=== PATIENT | male | born 1955 | race Caucasian/White ===

== ENCOUNTER 2024-01-21 09:19 | Inpatient (IN) | payer BC ==
[~2024-01-21] VITALS: Ht 167.6 cm; Wt 57.2 kg
[2024-01-21] MEDS: IV NS 0.9% 1,000 ML BAG IV ONE (09:35)
[2024-01-21 10:25] LABS: BASOPHILS % (AUTO) 0.3 % (0.0-2.0); HEMATOCRIT 24 % (39-51); LYMPHOCYTES # (AUTO) 0.9 K/uL (0.8-4.8); LYMPHOCYTES % (AUTO) 13.5 % (20.0-44.0); MEAN CORPUSCULAR HEMOGLOBIN 31 PG (26.0-33.0); MEAN CORPUSCULAR HGB CONC 34 g/dl (31.0-36.0); MEAN CORPUSCULAR VOLUME 94 fL (80-96); MONOCYTES # (AUTO) 0.4 K/uL (0.1-1.30); MONOCYTES % (AUTO) 5.8 % (2.0-12.0); NEUTROPHILS # (AUTO) 5.4 K/uL (1.8-8.9); NEUTROPHILS % (AUTO) 80.4 % (43.0-81.0); PLATELET COUNT (AUTO) 479 K/uL (150-450); RED BLOOD CELL COUNT(AUTO) 2.56 MIL/uL (4.5-6.0); RED CELL DISTRIBUTION WIDTH 15.4 % (11.5-15.0); WHITE BLOOD COUNT (AUTO) 6.7 K/uL (4.3-11.0)
[2024-01-21 10:34] LABS: CALCIUM, SERUM 6.7 mg/dL (8.5-10.1); POTASSIUM 3.2 mmol/L (3.5-5.1)
[2024-01-21] MEDS ORDERED: VALS320T16 PO (11:13)
[2024-01-21] MEDS ORDERED: OMEP40CA21 PO (11:13)
[2024-01-21] MEDS ORDERED: DIPH1TAB PO (11:13)
[2024-01-21] MEDS ORDERED: RIVA10TA PO (11:13)
[2024-01-21] MEDS ORDERED: AMLO-212 PO (11:13)
[2024-01-21] MEDS: IV NS 0.9% 1,000 ML IV SCH (15:22)
[2024-01-21] MEDS: RIVAROXABAN 10 MG TABLET PO SCH (17:38)
[2024-01-21] MEDS: ONDANSETRON HCL/PF 4 MG/2 ML VIAL IVP PRN (19:42)
[2024-01-21 20:00] VITALS: BP 103/70; TEMP 98; TEMP 98.6; O2SAT 96; O2SAT 98
[2024-01-21] MEDS ORDERED: HEPARIN SODIUM, PORCINE 5000 UNITS/1 ML VIAL SQ SCH (21:00)
[2024-01-21] MEDS: VALSARTAN 80 MG TABLET PO SCH (22:00)
[2024-01-22] VITALS: BP 105/69; TEMP 98.6; O2SAT 98
[2024-01-22 04:00] VITALS: BP 110/58; TEMP 98; O2SAT 99
[2024-01-22 08:00] VITALS: BP 108/78; TEMP 98; O2SAT 100
[2024-01-22 08:50] LABS: POTASSIUM 3.1 mmol/L (3.5-5.1)
[2024-01-22 08:51] LABS: BILIRUBIN,TOTAL 0.6 mg/dL (0.2-1.0); CALCIUM, SERUM 6.6 mg/dL (8.5-10.1); CREATININE 0.7 mg/dL (0.6-1.3)
[2024-01-22 08:52] LABS: TOTAL PROTEIN, SERUM 4.8 g/dL (6.4-8.2)
[2024-01-22 09:00] LABS: ALBUMIN 0.9 g/dL (3.4-5.0)
[2024-01-22 10:10] LABS: BASOPHILS % (AUTO) 0.4 % (0.0-2.0); EOSINOPHILS % (AUTO) 0.1 % (0.0-6.0); HEMATOCRIT 23 % (39-51); HEMOGLOBIN 7.9 g/dL (13.5-17.5); LYMPHOCYTES # (AUTO) 0.8 K/uL (0.8-4.8); LYMPHOCYTES % (AUTO) 16.1 % (20.0-44.0); MEAN CORPUSCULAR HEMOGLOBIN 32 PG (26.0-33.0); MEAN CORPUSCULAR HGB CONC 34 g/dl (31.0-36.0); MEAN CORPUSCULAR VOLUME 94 fL (80-96); MONOCYTES # (AUTO) 0.3 K/uL (0.1-1.30); MONOCYTES % (AUTO) 6.6 % (2.0-12.0); NEUTROPHILS # (AUTO) 3.9 K/uL (1.8-8.9); NEUTROPHILS % (AUTO) 76.8 % (43.0-81.0); PLATELET COUNT (AUTO) 461 K/uL (150-450); RED BLOOD CELL COUNT(AUTO) 2.45 MIL/uL (4.5-6.0); RED CELL DISTRIBUTION WIDTH 15.2 % (11.5-15.0)
[2024-01-22] MEDS: POTASSIUM CHLORIDE 20 MEQ TAB.PRT.SR PO SCH (11:37)
[2024-01-22 12:00] VITALS: BP 116/77; TEMP 98.4; O2SAT 100
[2024-01-22] MEDS: ENSURE ENLIVE CHOC 237 ML CAN PO SCH (12:01)
[2024-01-22 16:00] VITALS: BP 105/69; TEMP 98.3; O2SAT 100
[2024-01-22] MEDS: K PHOS NEUTRAL 250 MG TABLET PO ONE (16:22)
[2024-01-22 20:00] VITALS: BP 112/71; TEMP 98.4; O2SAT 100
[2024-01-23] VITALS: BP 107/67; TEMP 98.1; O2SAT 100
[2024-01-23 04:00] VITALS: BP 112/74; TEMP 97.5; O2SAT 97
[2024-01-23 07:02] LABS: CALCIUM, SERUM 6.4 mg/dL (8.5-10.1); CREATININE 0.7 mg/dL (0.6-1.3); MAGNESIUM 1.6 mg/dL (1.8-2.4); PHOSPHORUS 1.5 mg/dL (2.5-4.9); POTASSIUM 3.8 mmol/L (3.5-5.1)
[2024-01-23 07:19] LABS: THYROID STIMULATING HORMONE 1.303 uIU/mL (0.358-3.74); URIC ACID 2.8 mg/dL (2.6-7.2)
[2024-01-23 08:00] VITALS: BP 152/95; TEMP 99.1; O2SAT 98
[2024-01-23] MEDS: ACETAMINOPHEN 325 MG TABLET PO PRN (08:14)
[2024-01-23 12:00] VITALS: BP 107/60; TEMP 98.6; O2SAT 97
[2024-01-23] MEDS: ALBUMIN 25% 25 GM in PREMIX 1 EA IV SCH (14:13)
[2024-01-23 16:00] VITALS: BP 114/74; TEMP 98.2; O2SAT 99
[2024-01-23] MEDS: K PHOS NEUTRAL 250 MG TABLET PO ONE (16:00)
[2024-01-23 20:00] VITALS: BP 103/66; TEMP 98.4; O2SAT 98
[2024-01-24] VITALS (14 sets, daily range): BP systolic 93–123; BP diastolic 49–69; TEMP 98.4–100; O2SAT 95
[2024-01-24] MEDS: ENOXAPARIN SODIUM 60 MG/0.6 ML DISP.SYRIN SQ SCH (11:08)
[2024-01-24 11:28] LABS: BASOPHILS % (AUTO) 0.3 % (0.0-2.0); EOSINOPHILS % (AUTO) 0.3 % (0.0-6.0); LYMPHOCYTES # (AUTO) 1.4 K/uL (0.8-4.8); LYMPHOCYTES % (AUTO) 22.2 % (20.0-44.0); MEAN CORPUSCULAR HEMOGLOBIN 32 PG (26.0-33.0); MEAN CORPUSCULAR HGB CONC 35 g/dl (31.0-36.0); MEAN CORPUSCULAR VOLUME 93 fL (80-96); MONOCYTES # (AUTO) 0.6 K/uL (0.1-1.30); MONOCYTES % (AUTO) 9.2 % (2.0-12.0); NEUTROPHILS # (AUTO) 4.3 K/uL (1.8-8.9); PLATELET COUNT (AUTO) 353 K/uL (150-450); RED CELL DISTRIBUTION WIDTH 15.8 % (11.5-15.0); WHITE BLOOD COUNT (AUTO) 6.3 K/uL (4.3-11.0)
[2024-01-24 11:33] LABS: RED BLOOD CELL COUNT(AUTO) 1.58 MIL/uL (4.5-6.0)
[2024-01-24 11:35] LABS: HEMATOCRIT 15 % (39-51); HEMOGLOBIN 5.1 g/dL (13.5-17.5)
[2024-01-24 11:38] LABS: CALCIUM, SERUM 6.4 mg/dL (8.5-10.1); CREATININE 0.7 mg/dL (0.6-1.3); POTASSIUM 3.1 mmol/L (3.5-5.1)
[2024-01-24 11:45] LABS: BILIRUBIN,TOTAL 0.5 mg/dL (0.2-1.0); TOTAL PROTEIN, SERUM 4.1 g/dL (6.4-8.2)
[2024-01-24 11:52] LABS: ALBUMIN 1.1 g/dL (3.4-5.0)
[2024-01-24] MEDS ORDERED: FUROSEMIDE 20 MG/2 ML VIAL IV PRN (12:00)
[2024-01-24 12:35] LABS: BAND % (MANUAL) 2 % (0.0-5.0); BASOPHILS % (MANUAL) 0 % (0.0-2.0); EOSINOPHILS % (MANUAL) 0 % (0-4); LYMPHOCYTES % (MANUAL) 19 % (16-48); MONOCYTES % (MANUAL) 6 % (0-11.0); NEUTROPHILS % (MANUAL) 73 (42-76)
[2024-01-24 12:36] LABS: ANISOCYTOSIS 1+; HYPOCHROMASIA 1+; OVALOCYTES 1+; PLATELET ESTIMATE ADEQUATE; TARGET CELLS 1+
[2024-01-24] MEDS: PANTOPRAZOLE 40 MG VIAL IV SCH (14:23)
[2024-01-24] MEDS: ALBUMIN 25% 25 GM in PREMIX 1 EA IV ONE (14:26)
[2024-01-24] MEDS: FUROSEMIDE 20 MG/2 ML VIAL IV ONE (20:00)
[2024-01-25] MEDS: FUROSEMIDE 20 MG/2 ML VIAL IV ONE (00:30)
[2024-01-25 03:16] LABS: HEMOGLOBIN 8.1 g/dL (13.5-17.5)
[2024-01-25 03:23] LABS: APPEARANCE,URINE CLEAR (CLEAR); BILIRUBIN,URINE NEGATIVE (NEGATIVE); BLOOD, URINE TRACE-INTA Ery/uL (NEGATIVE); COLOR,URINE YELLOW (YELLOW); KETONES,URINE NEGATIVE (NEGATIVE); LEUKOCYTE ESTERASE ,URINE 1+ (NEGATIVE); NITRITE, URINE NEGATIVE (NEGATIVE); PROTEIN,URINE NEGATIVE (NEGATIVE); UGLUCOSE NEGATIVE (NEGATIVE); UROBILINOGEN,URINE 0.2 EU/dL (0.2)
[2024-01-25 03:27] LABS: ADD URINE CULTURE YES; BACTERIA,URINE Rare /HPF (None Seen); RBC,URINE 0-2 /HPF (0-2)
[2024-01-25 03:28] LABS: SQUAMOUS EPITHELIAL CELL,UR Few /HPF (None Seen)
[2024-01-25 03:33] LABS: BILIRUBIN,TOTAL 1.3 mg/dL (0.2-1.0); CALCIUM, SERUM 6.8 mg/dL (8.5-10.1); CREATININE 0.8 mg/dL (0.6-1.3); POTASSIUM 3.2 mmol/L (3.5-5.1); TOTAL PROTEIN, SERUM 4.5 g/dL (6.4-8.2)
[2024-01-25 04:00] VITALS: BP 120/58; TEMP 99.3; O2SAT 95
[2024-01-25 04:36] LABS: ALBUMIN 0.1 g/dL (3.4-5.0)
[2024-01-25 08:00] VITALS: BP 113/69; TEMP 99.5; O2SAT 95
[2024-01-25] MEDS ORDERED: POTASSIUM CHLORIDE 20 MEQ TAB.PRT.SR PO SCH (08:00)
[2024-01-25] MEDS: ALBUMIN 25% 25 GM in PREMIX 1 EA IV SCH (08:09)
[2024-01-25 09:48] LABS: BASOPHILS % (AUTO) 0.2 % (0.0-2.0); EOSINOPHILS % (AUTO) 0.2 % (0.0-6.0); HEMATOCRIT 24 % (39-51); HEMOGLOBIN 8.2 g/dL (13.5-17.5); LYMPHOCYTES # (AUTO) 1.4 K/uL (0.8-4.8); LYMPHOCYTES % (AUTO) 19.6 % (20.0-44.0); MEAN CORPUSCULAR HEMOGLOBIN 32 PG (26.0-33.0); MEAN CORPUSCULAR HGB CONC 35 g/dl (31.0-36.0); MEAN CORPUSCULAR VOLUME 91 fL (80-96); MONOCYTES % (AUTO) 13.8 % (2.0-12.0); NEUTROPHILS # (AUTO) 4.9 K/uL (1.8-8.9); NEUTROPHILS % (AUTO) 66.2 % (43.0-81.0); PLATELET COUNT (AUTO) 345 K/uL (150-450); RED BLOOD CELL COUNT(AUTO) 2.59 MIL/uL (4.5-6.0); RED CELL DISTRIBUTION WIDTH 15.3 % (11.5-15.0); WHITE BLOOD COUNT (AUTO) 7.4 K/uL (4.3-11.0)
[2024-01-25 10:16] LABS: INR 1.2 (0.91-1.10); PROTHROMBIN TIME 12.6 SECS (9.2-11.1)
[2024-01-25] MEDS: CEFEPIME 2 GM in IV D5W 100 ML IV SCH (11:29)
[2024-01-25 16:00] VITALS: BP 113/71; TEMP 98.8; O2SAT 96
[2024-01-25 20:00] VITALS: BP 103/58; TEMP 98.5; O2SAT 95
[2024-01-26] VITALS (8 sets, daily range): BP systolic 122–149; BP diastolic 69–114; TEMP 96–99.4; O2SAT 96–97
[2024-01-26 06:40] LABS: ALBUMIN 2.2 g/dL (3.4-5.0); CALCIUM, SERUM 7.1 mg/dL (8.5-10.1); CREATININE 0.8 mg/dL (0.6-1.3); POTASSIUM 2.9 mmol/L (3.5-5.1); TOTAL PROTEIN, SERUM 4.6 g/dL (6.4-8.2)
[2024-01-26 06:42] LABS: BASOPHILS % (AUTO) 0.2 % (0.0-2.0); EOSINOPHILS % (AUTO) 0.1 % (0.0-6.0); LYMPHOCYTES # (AUTO) 1.5 K/uL (0.8-4.8); LYMPHOCYTES % (AUTO) 22.3 % (20.0-44.0); MEAN CORPUSCULAR HEMOGLOBIN 33 PG (26.0-33.0); MEAN CORPUSCULAR HGB CONC 35 g/dl (31.0-36.0); MEAN CORPUSCULAR VOLUME 92 fL (80-96); MONOCYTES # (AUTO) 0.8 K/uL (0.1-1.30); MONOCYTES % (AUTO) 11.8 % (2.0-12.0); NEUTROPHILS # (AUTO) 4.5 K/uL (1.8-8.9); NEUTROPHILS % (AUTO) 65.6 % (43.0-81.0); PLATELET COUNT (AUTO) 282 K/uL (150-450); RED BLOOD CELL COUNT(AUTO) 2.02 MIL/uL (4.5-6.0); RED CELL DISTRIBUTION WIDTH 15.2 % (11.5-15.0); WHITE BLOOD COUNT (AUTO) 6.9 K/uL (4.3-11.0)
[2024-01-26 06:45] LABS: HEMATOCRIT 19 % (39-51); HEMOGLOBIN 6.6 g/dL (13.5-17.5)
[2024-01-26] MEDS: POTASSIUM CHLORIDE 20 MEQ TAB.PRT.SR PO SCH (09:00)
[2024-01-26] MEDS: POTASSIUM CL. PREMIX PERIPHER. 50 ML IV SCH ×2 (10:00→15:22)
[2024-01-26 11:52] LABS: BASOPHILS % (MANUAL) 0 % (0.0-2.0); EOSINOPHILS % (MANUAL) 0 % (0-4); LYMPHOCYTES % (MANUAL) 19 % (16-48); MONOCYTES % (MANUAL) 9 % (0-11.0); NEUTROPHILS % (MANUAL) 72 (42-76)
[2024-01-26 11:53] LABS: ANISOCYTOSIS 1+; OVALOCYTES 1+; PLATELET ESTIMATE ADEQUATE
[2024-01-26 14:55] LABS: HEMOGLOBIN 8.3 g/dL (13.5-17.5)
[2024-01-26 18:22] LABS: CALCIUM, SERUM 7.1 mg/dL (8.5-10.1); CREATININE 0.8 mg/dL (0.6-1.3); POTASSIUM 3.3 mmol/L (3.5-5.1)
[2024-01-26] MEDS ORDERED: POTASSIUM CL. PREMIX PERIPHER. 50 ML IV SCH (22:00)
[2024-01-27] MEDS: CEFEPIME 2 GM in IV D5W 100 ML IV SCH (00:38)
[2024-01-27 04:00] VITALS: BP 138/80; TEMP 98; O2SAT 98
[2024-01-27 06:58] LABS: BASOPHILS % (AUTO) 0.3 % (0.0-2.0); EOSINOPHILS % (AUTO) 0.4 % (0.0-6.0); HEMATOCRIT 25 % (39-51); HEMOGLOBIN 8.9 g/dL (13.5-17.5); LYMPHOCYTES # (AUTO) 1.7 K/uL (0.8-4.8); LYMPHOCYTES % (AUTO) 27.3 % (20.0-44.0); MEAN CORPUSCULAR HEMOGLOBIN 32 PG (26.0-33.0); MEAN CORPUSCULAR HGB CONC 35 g/dl (31.0-36.0); MEAN CORPUSCULAR VOLUME 92 fL (80-96); MONOCYTES # (AUTO) 0.8 K/uL (0.1-1.30); MONOCYTES % (AUTO) 12.5 % (2.0-12.0); NEUTROPHILS # (AUTO) 3.6 K/uL (1.8-8.9); NEUTROPHILS % (AUTO) 59.5 % (43.0-81.0); PLATELET COUNT (AUTO) 299 K/uL (150-450); RED BLOOD CELL COUNT(AUTO) 2.74 MIL/uL (4.5-6.0); RED CELL DISTRIBUTION WIDTH 15.5 % (11.5-15.0)
[2024-01-27 07:13] LABS: ALANINE AMINOTRANSFERASE < 6 U/L (12-78); ALKALINE PHOSPHATASE 62 U/L (46-116); ASPARTATE AMINOTRANSFERASE 5 U/L (15-37); CARBON DIOXIDE 21 mmol/L (21-32); CHLORIDE 103 mmol/L (98-107); CREATININE 0.7 mg/dL (0.6-1.3); GLUCOSE 75 mg/dL (74-106); POTASSIUM 3.8 mmol/L (3.5-5.1); SODIUM SERUM 132 mmol/L (136-145); TOTAL PROTEIN, SERUM 4.6 g/dL (6.4-8.2); UREA NITROGEN, BLOOD 7 mg/dL (7-18)
[2024-01-27 08:00] VITALS: BP 135/81; TEMP 98.6; O2SAT 96
[2024-01-27] MEDS ORDERED: POTASSIUM CL. PREMIX PERIPHER. 50 ML IV SCH ×2 (10:00→22:00)
[2024-01-27 16:00] VITALS: BP 133/80; TEMP 98.4; O2SAT 96
[2024-01-27] MEDS: PANTOPRAZOLE 40 MG TABLET.DR PO SCH (16:32)
[2024-01-27 20:00] VITALS: BP 132/77; TEMP 98.5; O2SAT 96
[2024-01-28 04:00] VITALS: BP 129/79; TEMP 98; O2SAT 95
[2024-01-28 06:48] LABS: BASOPHILS % (AUTO) 0.5 % (0.0-2.0); EOSINOPHILS % (AUTO) 0.5 % (0.0-6.0); HEMATOCRIT 25 % (39-51); HEMOGLOBIN 8.6 g/dL (13.5-17.5); LYMPHOCYTES # (AUTO) 1.7 K/uL (0.8-4.8); LYMPHOCYTES % (AUTO) 26.4 % (20.0-44.0); MEAN CORPUSCULAR HEMOGLOBIN 32 PG (26.0-33.0); MEAN CORPUSCULAR HGB CONC 34 g/dl (31.0-36.0); MEAN CORPUSCULAR VOLUME 93 fL (80-96); MONOCYTES # (AUTO) 0.7 K/uL (0.1-1.30); MONOCYTES % (AUTO) 11.5 % (2.0-12.0); NEUTROPHILS # (AUTO) 3.9 K/uL (1.8-8.9); NEUTROPHILS % (AUTO) 61.1 % (43.0-81.0); PLATELET COUNT (AUTO) 297 K/uL (150-450); RED BLOOD CELL COUNT(AUTO) 2.69 MIL/uL (4.5-6.0); RED CELL DISTRIBUTION WIDTH 15.4 % (11.5-15.0); WHITE BLOOD COUNT (AUTO) 6.3 K/uL (4.3-11.0)
[2024-01-28 07:02] LABS: CALCIUM, SERUM 7.1 mg/dL (8.5-10.1); CREATININE 0.7 mg/dL (0.6-1.3); MAGNESIUM 1.5 mg/dL (1.8-2.4); PHOSPHORUS 1.1 mg/dL (2.5-4.9); POTASSIUM 3.3 mmol/L (3.5-5.1)
[2024-01-28 08:00] VITALS: BP 124/80; TEMP 98.2; O2SAT 96
[2024-01-28] MEDS: MAGNESIUM OXIDE 400 MG TABLET PO ONE (10:04)
[2024-01-28] MEDS: POTASSIUM CHLORIDE 20 MEQ TAB.PRT.SR PO ONE (12:14)
[2024-01-28] MEDS: MORPHINE SULFATE INJ 2 MG/ML DISP.SYRIN IV PRN (12:49)
[2024-01-28] MEDS: POTASSIUM CL. PREMIX PERIPHER. 50 ML IV SCH (13:34)
[2024-01-28 16:00] VITALS: BP 132/77; TEMP 98.1; O2SAT 98
[2024-01-28 20:00] VITALS: BP 103/86; TEMP 98.7; O2SAT 98
[2024-01-28] MEDS ORDERED: KETOROLAC TROMETHAMINE INJ 30 MG/ML VIAL ONE (21:47)
[2024-01-28] MEDS: KETOROLAC TROMETHAMINE 15 MG/ML VIAL IV ONE (21:51)
[2024-01-29] MEDS: MORPHINE SULFATE INJ 2 MG/ML DISP.SYRIN IV PRN (02:11)
[2024-01-29 04:00] VITALS: BP 131/69; TEMP 98.5; O2SAT 97
[2024-01-29 06:57] LABS: BASOPHILS % (AUTO) 0.5 % (0.0-2.0); EOSINOPHILS # (AUTO) 0.1 K/uL (0.0-0.7); HEMATOCRIT 25 % (39-51); HEMOGLOBIN 8.7 g/dL (13.5-17.5); LYMPHOCYTES # (AUTO) 1.4 K/uL (0.8-4.8); LYMPHOCYTES % (AUTO) 18.4 % (20.0-44.0); MEAN CORPUSCULAR HEMOGLOBIN 33 PG (26.0-33.0); MEAN CORPUSCULAR HGB CONC 35 g/dl (31.0-36.0); MEAN CORPUSCULAR VOLUME 93 fL (80-96); MONOCYTES # (AUTO) 0.9 K/uL (0.1-1.30); NEUTROPHILS # (AUTO) 5.4 K/uL (1.8-8.9); NEUTROPHILS % (AUTO) 69.1 % (43.0-81.0); PLATELET COUNT (AUTO) 322 K/uL (150-450); RED BLOOD CELL COUNT(AUTO) 2.67 MIL/uL (4.5-6.0); RED CELL DISTRIBUTION WIDTH 16.3 % (11.5-15.0); WHITE BLOOD COUNT (AUTO) 7.9 K/uL (4.3-11.0)
[2024-01-29 07:36] LABS: ALBUMIN 1.7 g/dL (3.4-5.0); BILIRUBIN,TOTAL 0.5 mg/dL (0.2-1.0); CALCIUM, SERUM 6.8 mg/dL (8.5-10.1); CREATININE 0.8 mg/dL (0.6-1.3); MAGNESIUM 1.5 mg/dL (1.8-2.4); PHOSPHORUS 1.1 mg/dL (2.5-4.9); POTASSIUM 3.6 mmol/L (3.5-5.1); TOTAL PROTEIN, SERUM 4.4 g/dL (6.4-8.2)
[2024-01-29 08:00] VITALS: BP 139/83; TEMP 98.8; O2SAT 98
[2024-01-29] MEDS: MAGNESIUM OXIDE 400 MG TABLET PO ONE (09:42)
[2024-01-29 16:00] VITALS: BP 134/82; TEMP 98.1; O2SAT 97
[2024-01-29 20:00] VITALS: BP 138/76; TEMP 97.5; O2SAT 97
[2024-01-29] MEDS: DIPHENOXYLATE HCL/ATROP SULF 1 UDTAB TABLET PO PRN (20:43)
[2024-01-30 04:00] VITALS: BP 136/81; TEMP 97.5; O2SAT 97
[2024-01-30 06:45] LABS: BASOPHILS % (AUTO) 0.5 % (0.0-2.0); EOSINOPHILS % (AUTO) 0.5 % (0.0-6.0); HEMATOCRIT 25 % (39-51); HEMOGLOBIN 8.5 g/dL (13.5-17.5); LYMPHOCYTES # (AUTO) 1.4 K/uL (0.8-4.8); LYMPHOCYTES % (AUTO) 18.5 % (20.0-44.0); MEAN CORPUSCULAR HEMOGLOBIN 32 PG (26.0-33.0); MEAN CORPUSCULAR HGB CONC 34 g/dl (31.0-36.0); MEAN CORPUSCULAR VOLUME 94 fL (80-96); MONOCYTES # (AUTO) 0.8 K/uL (0.1-1.30); MONOCYTES % (AUTO) 10.3 % (2.0-12.0); NEUTROPHILS # (AUTO) 5.4 K/uL (1.8-8.9); NEUTROPHILS % (AUTO) 70.2 % (43.0-81.0); PLATELET COUNT (AUTO) 392 K/uL (150-450); RED BLOOD CELL COUNT(AUTO) 2.65 MIL/uL (4.5-6.0); RED CELL DISTRIBUTION WIDTH 16.4 % (11.5-15.0); WHITE BLOOD COUNT (AUTO) 7.6 K/uL (4.3-11.0)
[2024-01-30 06:50] LABS: ALANINE AMINOTRANSFERASE < 6 U/L (12-78); ALBUMIN 1.6 g/dL (3.4-5.0); ALKALINE PHOSPHATASE 73 U/L (46-116); ASPARTATE AMINOTRANSFERASE 6 U/L (15-37); BILIRUBIN,TOTAL 0.8 mg/dL (0.2-1.0); CARBON DIOXIDE 25 mmol/L (21-32); CHLORIDE 100 mmol/L (98-107); CREATININE 0.8 mg/dL (0.6-1.3); GLUCOSE 93 mg/dL (74-106); MAGNESIUM 1.4 mg/dL (1.8-2.4); POTASSIUM 3.5 mmol/L (3.5-5.1); SODIUM SERUM 129 mmol/L (136-145); TOTAL PROTEIN, SERUM 4.5 g/dL (6.4-8.2); UREA NITROGEN, BLOOD 12 mg/dL (7-18)
[2024-01-30 06:59] LABS: CALCIUM, SERUM 5.7 mg/dL (8.5-10.1)
[2024-01-30 08:00] VITALS: BP 139/78; TEMP 98.2; O2SAT 97
[2024-01-30 09:58] VITALS: BP 148/82; TEMP 98.6; O2SAT 97
[2024-01-30] MEDS: MAGNESIUM OXIDE 400 MG TABLET PO ONE (09:58)
[2024-01-30] MEDS: Calcium Gluconate 1GM/10ML 9.3 MEQ in IV NS 0.9% 100 ML IV ONE (10:12)
[2024-01-30] MEDS: hydrALAZINE HCL IV 20 MG VIAL IV PRN (10:59)
[2024-01-30 16:00] VITALS: BP 123/77; TEMP 97.5; O2SAT 97
[2024-01-30] MEDS: HYDROCODONE/APAP 10/325MG TABLET PO PRN (17:12)
[2024-01-30 21:00] VITALS: BP 126/77; TEMP 100.6; O2SAT 95
[2024-01-30 22:45] VITALS: TEMP 97.9
[2024-01-31 00:55] VITALS: BP 138/71; O2SAT 97
[2024-01-31 04:00] VITALS: BP 118/87; TEMP 98.1; O2SAT 99
[2024-01-31 06:53] LABS: BASOPHILS % (AUTO) 0.5 % (0.0-2.0); EOSINOPHILS % (AUTO) 0.5 % (0.0-6.0); HEMATOCRIT 27 % (39-51); HEMOGLOBIN 9.1 g/dL (13.5-17.5); LYMPHOCYTES # (AUTO) 1.6 K/uL (0.8-4.8); LYMPHOCYTES % (AUTO) 19.8 % (20.0-44.0); MEAN CORPUSCULAR HEMOGLOBIN 33 PG (26.0-33.0); MEAN CORPUSCULAR HGB CONC 34 g/dl (31.0-36.0); MEAN CORPUSCULAR VOLUME 95 fL (80-96); MONOCYTES % (AUTO) 12.9 % (2.0-12.0); NEUTROPHILS # (AUTO) 5.3 K/uL (1.8-8.9); NEUTROPHILS % (AUTO) 66.3 % (43.0-81.0); PLATELET COUNT (AUTO) 447 K/uL (150-450); RED CELL DISTRIBUTION WIDTH 16.8 % (11.5-15.0)
[2024-01-31 07:05] LABS: CALCIUM, SERUM 7.5 mg/dL (8.5-10.1); CREATININE 0.9 mg/dL (0.6-1.3); MAGNESIUM 1.5 mg/dL (1.8-2.4); PHOSPHORUS 1.1 mg/dL (2.5-4.9); POTASSIUM 3.5 mmol/L (3.5-5.1)
[2024-01-31 08:00] VITALS: BP 112/65; TEMP 97.9; O2SAT 96
[2024-01-31] MEDS: MAGNESIUM OXIDE 400 MG TABLET PO ONE (09:49)
[2024-01-31 16:00] VITALS: BP 147/75; TEMP 98.2; O2SAT 98
[2024-01-31] MEDS: RIVAROXABAN 10 MG TABLET PO SCH (17:57)
[2024-01-31] MEDS: Sodium Phosphate 30 MMOL in IV NS 0.9% 250 ML IV SCH (17:57)
[2024-01-31 20:00] VITALS: BP 104/64; TEMP 98.7; O2SAT 98
[2024-02-01 04:00] VITALS: BP 112/68; TEMP 98; O2SAT 98
[2024-02-01 08:07] VITALS: BP 136/84; TEMP 97.9; O2SAT 98
[2024-02-01 08:17] LABS: BASOPHILS # (AUTO) 0.1 K/uL (0.0-0.2); BASOPHILS % (AUTO) 1.1 % (0.0-2.0); EOSINOPHILS # (AUTO) 0.1 K/uL (0.0-0.7); EOSINOPHILS % (AUTO) 0.7 % (0.0-6.0); HEMATOCRIT 28 % (39-51); HEMOGLOBIN 9.1 g/dL (13.5-17.5); LYMPHOCYTES # (AUTO) 1.9 K/uL (0.8-4.8); LYMPHOCYTES % (AUTO) 24.5 % (20.0-44.0); MEAN CORPUSCULAR HEMOGLOBIN 32 PG (26.0-33.0); MEAN CORPUSCULAR HGB CONC 33 g/dl (31.0-36.0); MEAN CORPUSCULAR VOLUME 96 fL (80-96); MONOCYTES # (AUTO) 1.2 K/uL (0.1-1.30); MONOCYTES % (AUTO) 15.6 % (2.0-12.0); NEUTROPHILS # (AUTO) 4.4 K/uL (1.8-8.9); NEUTROPHILS % (AUTO) 58.1 % (43.0-81.0); PLATELET COUNT (AUTO) 509 K/uL (150-450); RED BLOOD CELL COUNT(AUTO) 2.88 MIL/uL (4.5-6.0); RED CELL DISTRIBUTION WIDTH 17.1 % (11.5-15.0); WHITE BLOOD COUNT (AUTO) 7.6 K/uL (4.3-11.0)
[2024-02-01 08:45] LABS: CALCIUM, SERUM 6.7 mg/dL (8.5-10.1); MAGNESIUM 1.7 mg/dL (1.8-2.4); PHOSPHORUS 1.6 mg/dL (2.5-4.9); POTASSIUM 3.3 mmol/L (3.5-5.1)
[2024-02-01] MEDS: POTASSIUM CHLORIDE 20 MEQ TAB.PRT.SR PO ONE (09:24)
[2024-02-01] MEDS: MAGNESIUM OXIDE 400 MG TABLET PO ONE (09:24)
[2024-02-01 10:01] LABS: LYMPHOCYTES % (MANUAL) 26 % (16-48); MONOCYTES % (MANUAL) 12 % (0-11.0); NEUTROPHILS % (MANUAL) 62 (42-76); PLATELET ESTIMATE INCREASED
[2024-02-01 10:02] LABS: ANISOCYTOSIS 1+
[2024-02-01] MEDS: K PHOS NEUTRAL 250 MG TABLET PO ONE (16:00)
[2024-02-01 16:03] VITALS: BP 118/87; TEMP 98.1; O2SAT 99
[2024-02-01] MEDS: ASCORBIC ACID 500 MG TABLET PO SCH (19:00)
[2024-02-01] MEDS: MULTIVIT W/MINERALS 1 TAB TABLET PO SCH (19:00)
[2024-02-01 20:00] VITALS: BP 105/60; TEMP 97.8; O2SAT 99
[2024-02-02 04:00] VITALS: BP 110/57; TEMP 98; O2SAT 96
[2024-02-02 06:54] LABS: BASOPHILS % (AUTO) 0.5 % (0.0-2.0); EOSINOPHILS % (AUTO) 0.3 % (0.0-6.0); HEMATOCRIT 23 % (39-51); HEMOGLOBIN 7.9 g/dL (13.5-17.5); LYMPHOCYTES # (AUTO) 2.2 K/uL (0.8-4.8); LYMPHOCYTES % (AUTO) 34.7 % (20.0-44.0); MEAN CORPUSCULAR HEMOGLOBIN 33 PG (26.0-33.0); MEAN CORPUSCULAR HGB CONC 35 g/dl (31.0-36.0); MEAN CORPUSCULAR VOLUME 94 fL (80-96); MONOCYTES # (AUTO) 1.1 K/uL (0.1-1.30); MONOCYTES % (AUTO) 16.8 % (2.0-12.0); NEUTROPHILS % (AUTO) 47.7 % (43.0-81.0); PLATELET COUNT (AUTO) 572 K/uL (150-450); RED BLOOD CELL COUNT(AUTO) 2.41 MIL/uL (4.5-6.0); RED CELL DISTRIBUTION WIDTH 17.3 % (11.5-15.0); WHITE BLOOD COUNT (AUTO) 6.3 K/uL (4.3-11.0)
[2024-02-02 07:13] LABS: CALCIUM, SERUM 7.5 mg/dL (8.5-10.1); CREATININE 0.9 mg/dL (0.6-1.3); MAGNESIUM 1.7 mg/dL (1.8-2.4); PHOSPHORUS 1.2 mg/dL (2.5-4.9); POTASSIUM 3.5 mmol/L (3.5-5.1)
[2024-02-02 08:32] VITALS: BP 90/65; TEMP 97.9; O2SAT 96
[2024-02-02] MEDS: MAGNESIUM OXIDE 400 MG TABLET PO ONE (09:20)
[2024-02-02] MEDS: K PHOS NEUTRAL 250 MG TABLET PO ONE (16:18)
[2024-02-02 17:55] VITALS: BP 118/87; TEMP 98.1; O2SAT 99
[2024-02-02 20:00] VITALS: BP 105/60; TEMP 99; O2SAT 96
[2024-02-03 04:00] VITALS: BP 106/60; TEMP 98; O2SAT 97
[2024-02-03 07:12] LABS: CALCIUM, SERUM 7.2 mg/dL (8.5-10.1); CREATININE 0.8 mg/dL (0.6-1.3); MAGNESIUM 1.8 mg/dL (1.8-2.4); PHOSPHORUS 1.4 mg/dL (2.5-4.9); POTASSIUM 4.1 mmol/L (3.5-5.1)
[2024-02-03 08:00] VITALS: BP 125/60; TEMP 98; O2SAT 97
[2024-02-03 09:05] LABS: BASOPHILS % (AUTO) 0.3 % (0.0-2.0); EOSINOPHILS % (AUTO) 0.4 % (0.0-6.0); HEMATOCRIT 23 % (39-51); HEMOGLOBIN 7.9 g/dL (13.5-17.5); LYMPHOCYTES # (AUTO) 2.3 K/uL (0.8-4.8); LYMPHOCYTES % (AUTO) 35.1 % (20.0-44.0); MEAN CORPUSCULAR HEMOGLOBIN 32 PG (26.0-33.0); MEAN CORPUSCULAR HGB CONC 34 g/dl (31.0-36.0); MEAN CORPUSCULAR VOLUME 94 fL (80-96); MONOCYTES # (AUTO) 1.1 K/uL (0.1-1.30); MONOCYTES % (AUTO) 15.8 % (2.0-12.0); NEUTROPHILS # (AUTO) 3.2 K/uL (1.8-8.9); NEUTROPHILS % (AUTO) 48.4 % (43.0-81.0); PLATELET COUNT (AUTO) 644 K/uL (150-450); RED BLOOD CELL COUNT(AUTO) 2.47 MIL/uL (4.5-6.0); RED CELL DISTRIBUTION WIDTH 17.8 % (11.5-15.0); WHITE BLOOD COUNT (AUTO) 6.7 K/uL (4.3-11.0)
[2024-02-03] MEDS: THERAHONEY GEL 1.5 OZ TUBE TP SCH (09:30)
[2024-02-03] MEDS ORDERED: ANESTHESIA TRAY IN PYXIS 1 EA TRAY MC ONE (12:06)
[2024-02-03 16:00] VITALS: BP 119/65; TEMP 98.1; O2SAT 96
[2024-02-03] MEDS: Sodium Phosphate 15 MMOL in IV NS 0.9% 245 ML IV ONE (16:00)
[2024-02-03 20:00] VITALS: BP 126/65; TEMP 98; O2SAT 95
[2024-02-04 04:00] VITALS: BP 114/72; TEMP 98.2; O2SAT 94
[2024-02-04 08:00] VITALS: BP 122/78; TEMP 98.1; O2SAT 94
[2024-02-04] MEDS ORDERED: VITAL AF 1.2 1,000 ML BOTTLE GT PRN (08:30)
[2024-02-04 09:47] LABS: HEMOGLOBIN 8.6 g/dL (13.5-17.5)
[2024-02-04] MEDS: HYDROCODONE/APAP 5/325MG TABLET PO PRN (09:51)
[2024-02-04 10:09] LABS: ALANINE AMINOTRANSFERASE < 6 U/L (12-78); ALBUMIN 1.5 g/dL (3.4-5.0); ALKALINE PHOSPHATASE 96 U/L (46-116); ASPARTATE AMINOTRANSFERASE 8 U/L (15-37); BILIRUBIN,TOTAL 0.5 mg/dL (0.2-1.0); CALCIUM, SERUM 7.6 mg/dL (8.5-10.1); CARBON DIOXIDE 24 mmol/L (21-32); CHLORIDE 100 mmol/L (98-107); CREATININE 0.6 mg/dL (0.6-1.3); GLUCOSE 71 mg/dL (74-106); POTASSIUM 3.1 mmol/L (3.5-5.1); SODIUM SERUM 131 mmol/L (136-145); TOTAL PROTEIN, SERUM 4.7 g/dL (6.4-8.2); UREA NITROGEN, BLOOD 10 mg/dL (7-18)
[2024-02-04] MEDS: RIVAROXABAN 10 MG TABLET PO SCH (11:32)
[2024-02-04] MEDS: TWOCAL HN 1,000 ML LIQUID GT PRN (12:17)
[2024-02-04 16:00] VITALS: BP 128/73; TEMP 99.1; O2SAT 97
[2024-02-04 20:00] VITALS: BP 123/72; TEMP 98.6; O2SAT 96
[2024-02-04 20:44] LABS: HEMOGLOBIN 8.2 g/dL (13.5-17.5)
[2024-02-05 04:00] VITALS: BP 126/76; TEMP 98.1; O2SAT 97
[2024-02-05 06:56] LABS: CALCIUM, SERUM 8.1 mg/dL (8.5-10.1); CREATININE 0.8 mg/dL (0.6-1.3); POTASSIUM 3.6 mmol/L (3.5-5.1)
[2024-02-05 07:01] LABS: ALBUMIN 1.7 g/dL (3.4-5.0); BILIRUBIN,TOTAL 0.4 mg/dL (0.2-1.0); TOTAL PROTEIN, SERUM 5.5 g/dL (6.4-8.2)
[2024-02-05 08:00] VITALS: BP 128/68; TEMP 98.2; O2SAT 97
[2024-02-05 09:05] LABS: URINE SODIUM, RANDOM 12 mmol/l (40-220)
[2024-02-05] MEDS ORDERED: NUT.237L25 GT (12:13)
[2024-02-05] MEDS ORDERED: COLL30OI TP (12:13)
[2024-02-05] MEDS ORDERED: PANT40TA49 PO (12:13)
[2024-02-05] MEDS ORDERED: ASCO500T21 PO (12:13)
[2024-02-05] MEDS ORDERED: HYDR-3980 PO (12:13)
[2024-02-05 16:00] VITALS: BP 119/65; TEMP 98; O2SAT 97
[2024-02-06 15:52] LABS: OSMOLALITY,URINE 527 mOS/kg (340-1090)
== END 2024-02-05 19:25 | DRG 640 ==
LOC: ER 09:26 → TELE1 14:21 → MEDSG1 01-23 17:47
PROVIDERS: ADMIT Internal Medicine; ATTEND Internal Medicine
PROC: 06HM33Z Insertion of Infusion Device into Right Femoral Vein, Percutaneous Approach (ICD-10-PCS; principal; 2024-01-24)
PROC: 30233N1 Transfusion of Nonautologous Red Blood Cells into Peripheral Vein, Percutaneous Approach (ICD-10-PCS; 2024-01-24)
PROC: 0DJ08ZZ Inspection of Upper Intestinal Tract, Via Natural or Artificial Opening Endoscopic (ICD-10-PCS; 2024-01-26)
PROC: 0DH63UZ Insertion of Feeding Device into Stomach, Percutaneous Approach (ICD-10-PCS; 2024-02-03)
DX: E86.0 Dehydration (principal); E43 Unspecified severe protein-calorie malnutrition; D62 Acute posthemorrhagic anemia; D68.9 Coagulation defect, unspecified; K57.92 Diverticulitis of intestine, part unspecified, without perforation or abscess without bleeding; I82.623 Acute embolism and thrombosis of deep veins of upper extremity, bilateral; K29.70 Gastritis, unspecified, without bleeding; E87.1 Hypo-osmolality and hyponatremia; I95.1 Orthostatic hypotension; I10 Essential (primary) hypertension; J44.9 Chronic obstructive pulmonary disease, unspecified; E87.6 Hypokalemia; D63.8 Anemia in other chronic diseases classified elsewhere; Z85.46 Personal history of malignant neoplasm of prostate; Z88.8 Allergy status to other drugs, medicaments and biological substances; Z79.01 Long term (current) use of anticoagulants; Z79.899 Other long term (current) drug therapy; D75.839 Thrombocytosis, unspecified; Z90.49 Acquired absence of other specified parts of digestive tract; Z87.19 Personal history of other diseases of the digestive system; E86.9 Volume depletion, unspecified; E88.09 Other disorders of plasma-protein metabolism, not elsewhere classified; M89.8X9 Other specified disorders of bone, unspecified site; N30.90 Cystitis, unspecified without hematuria; E83.51 Hypocalcemia; K60.3 Anal fistula; M47.816 Spondylosis without myelopathy or radiculopathy, lumbar region; R62.7 Adult failure to thrive; G89.29 Other chronic pain
CPT/HCPCS: 36410; 36415; 43246; 70450-TC; 78226; 80048-TC; 80053-TC; 81001; 82040-TC; 82550-TC; 83735-TC; 83935-TC; 84100-TC; 84300-TC; 84443-TC; 84484-TC; 84550-TC; 85025-TC; 85027-TC; 85610-TC; 86850-TC; 87040-TC; 87086-TC; 93307-TC; 93971-TC; 97110-TC; 97112-TC; 97530-TC; 97535-TC; A4216; A4223; A6253; A6403; A9537; A9563; C9113; G0378; J0360; J0610; J0690; J0692; J1200; J1650; J1885; J1940; J2270; J2405; J2704; J3480; J3490; J7030; J7040; J7050; J7060; P9016; P9047